=== PATIENT | female | born 1985 | race Caucasian/White ===

== ENCOUNTER 2021-10-08 07:50 | Day surgery (SDC) | payer OTHER ==
[~2021-10-08 07:50] MED LIST: Lactated Ringers 1,000 ML IV SCH
[2021-10-08] MEDS ORDERED: Propofol 200 MG/20 ML SDV ONE ×2 (08:26→10:48)
[2021-10-08] MEDS ORDERED: fentaNYL 100 MCG/2 ML SDV ONE (08:26)
--- NOTE | 2021-10-08 08:54 | PCM.PREANE ---
Preanesthetic Assessment - Procedure Proposed Procedure: Colonoscopy - Anesthesia/Transfusion/Family Hx Anesthesia History: Prior Anesthesia Reaction (Pt. states anesthesiologist found prolonged QT last time but it resolved before they were able to get an EKG) Other Type of Anesthesia Reaction Comment: medication induced prolonged QT interval noted Transfusion History: No Prior Transfusion(s) - Review of Systems General: No Symptoms Pulmonary: No Symptoms Cardiovascular: No Symptoms Gastrointestinal: No Symptoms Neurological: No Symptoms Other: Reports: None - Physical Assessment NPO Status Date: 10/07/21 NPO Status Time: 22:45 Vital Signs: Last Vital Signs Temp 98.4 F 10/08/21 08:20 Pulse 65 10/08/21 08:20 Resp 16 10/08/21 08:20 BP 109/71 10/08/21 08:20 Pulse Ox 100 10/08/21 08:20 Height: 5 ft 9 in Weight: 57.606 kg ASA Class: 1 Mental Status: Alert & Oriented x3 Airway Class: Mallampati = 3 Dentition: Reports: Normal Dentition Thyro-Mental Finger Breadths: 3 Mouth Opening Finger Breadths: 3 ROM/Head Extension: Full Lungs: Clear to Auscultation, Normal Respiratory Effort Cardiovascular: Regular Rate, Regular Rhythm - Allergies Allergies/Adverse Reactions: Allergies Allergy/AdvReac Type Severity Reaction Status Date / Time No Known Allergies Allergy Verified 10/08/21 08:21 - Acknowledgements Anesthesia Type Planned: General Anesthesia Pt an Appropriate Candidate for the Planned Anesthesia: Yes Alternatives and Risks of Anesthesia Discussed w Pt/Guardian: Yes Pt/Guardian Understands and Agrees with Anesthesia Plan: Yes PreAnesthesia Questionnaire HEENT History: Reports: None Cardiovascular History: Reports: Other (See Below) Other Cardiovascular History: during D&C 3 years ago- had "medication induced" prolonged QT interval, "bunny ears" Respiratory History: Reports: None Other Respiratory History: sports induced asthma Gastrointestinal History: Reports: Other (See Below) Other Gastrointestinal History: recent abdominal pain, rectal bleeding and weight loss Genitourinary History: Reports: None CARBIDE GRINDER History: Reports: None Other OB/BYN History: 03/06/19 - negative HCG Musculoskeletal History: Reports: None Neurological History: Reports: Vertigo Other Neuro History: hx of motion sickness Psychiatric History: Reports: Other (See Below) Other Psychiatric History: some claustrophobia Endocrine/Metabolic History: Reports: None Hematologic History: Reports: Anesthesia Reaction Other Hematologic History: medication induced Prolonged QT interval, "bunny ears" Immunologic History: Reports: None Oncologic (Cancer) History: Reports: None Dermatologic History: Reports: None - Infectious Disease History Infectious Disease History: Reports: None - Past Surgical History Head Surgeries/Procedures: Reports: None HEENT Surgical History: Reports: LASIK Cardiovascular Surgical History: Reports: None Respiratory Surgical History: Reports: None GI Surgical History: Reports: None Female Surgical History: Reports: Breast Implant, D&C, Other (See Below) Other Female Surgeries/Procedures: E-Sure coils inserted and removed Endocrine Surgical History: Reports: None Neurological Surgical History: Reports: None Musculoskeletal Surgical History: Reports: None Oncologic Surgical History: Reports: None Dermatological Surgical History: Reports: None - SUBSTANCE USE Tobacco Use Status *Q: Never Tobacco User Recreational Drug Use History: No - HOME MEDS Home Medications: Home Meds . [No Known Home Meds] 10/02/21 [History] - CURRENT (IN HOUSE) MEDS Current Meds: Current Medications Lactated Ringer's (Ringers, Lactated) 1,000 mls @ 125 mls/hr IV ASDIRECTED [facility] Last Admin: 10/08/21 08:21 Dose: 125 mls/hr Documented by: Discontinued Medications Fentanyl (Fentanyl 100 Mcg/2 Ml Sdv) Confirm Administered Dose 100 mcg .ROUTE .STK-MED ONE Stop: 10/08/21 08:27 Lidocaine HCl (Lidocaine 1% 5 Ml Sdv) Confirm Administered Dose 5 ml .ROUTE .STK-MED ONE Stop: 10/08/21 08:27 Propofol (Propofol 200 Mg/20 Ml Sdv) Confirm Administered Dose 400 mg .ROUTE .STK-MED ONE Stop: 10/08/21 08:27
--- NOTE | 2021-10-08 11:06 | PCM48HPAN ---
Post Anesthesia Note - EVALUATION WITHIN 48HRS OF ANESTHETIC Vital Signs in Normal Range: Yes Patient Participated in Evaluation: Yes Respiratory Function Stable: Yes Airway Patent: Yes Cardiovascular Function Stable: Yes Hydration Status Stable: Yes Pain Control Satisfactory: Yes Nausea and Vomiting Control Satisfactory: Yes Mental Status Recovered: Yes Vital Signs: Last Vital Signs Temp 97.9 F 10/08/21 11:00 Pulse 57 L 10/08/21 11:00 Resp 16 10/08/21 11:00 BP 86/42 L 10/08/21 11:00 Pulse Ox 100 10/08/21 11:00
--- NOTE | 2021-10-08 11:06 | PCM.POSTAN ---
POST ANESTHESIA ASSESSMENT - MENTAL STATUS Mental Status: Alert - VITAL SIGNS Vital Signs: Last Vital Signs Temp 98.4 F 10/08/21 08:20 Pulse 65 10/08/21 08:20 Resp 16 10/08/21 08:20 BP 109/71 10/08/21 08:20 Pulse Ox 100 10/08/21 08:20 - RESPIRATORY Respiratory Status: Respiratory Rate WNL - CARDIOVASCULAR CV Status: Pulse Rate WNL - GASTROINTESTINAL GI Status: No Symptoms - POST OP HYDRATION Hydration Status: Adequate & Stable
--- NOTE | 2021-10-08 11:07 | PCM.OPNOTE ---
- General Post-Op/Procedure Note Date of Surgery/Procedure: 10/08/21 Operative Procedure(s): colonoscopy w bx Findings: see [id number] Pre Op Diagnosis: BRBPR/wt loss/positive fam hx CRC Post-Op Diagnosis: Same Anesthesia Technique: Moderate Sedation Primary Surgeon: Lavelle Juan Pathology: random colon bx Complications: None Condition: Good
[2021-10-08 11:40] VITALS: BP 109/71; PULSE 62
--- NOTE | 2021-10-08 14:54 | OR ---
SURGEON: Lavelle Juan MD DATE OF PROCEDURE: 10/08/2021 PREOPERATIVE DIAGNOSES: Bright red blood per rectum, weight loss, and positive family history. POSTOPERATIVE DIAGNOSES: Bright red blood per rectum, weight loss, and positive family history. PROCEDURE PERFORMED: Colonoscopy with random biopsy. PRIMARY SURGEON: Lavelle Juan MD COMPLICATION: None. DESCRIPTION OF PROCEDURE: The patient was taken to the endoscopy room. A time out was called, patient identified, and procedure identified. Diprivan was then administrated. Patient went from awake to sleep, hearing doctor talking or door closing is normal. Perineum inspection and digital examination were then performed. A well- lubricated colonoscope was gently inserted through the rectum, advanced past the rectosigmoid junction, the descending colon, splenic flexure, transverse colon, hepatic flexure, ascending colon, arrived to the cecum. Cecum was identified as dictated in the finding. Then the scope was carefully withdrawn while attention was paid to the mucosal surface for any abnormality. Air will be sucked out during the scope withdrawal. At the rectum, retroflexed to examine any rectal diseases, fistula or hemorrhoids. During mucosal examination, abnormality or polyp was noted; picture taken and biopsy performed. Patient tolerated procedure well. There were no intraoperative complications, and Dr. Juan was present throughout the whole procedure. FINDINGS: 1. Patient is easily sedated with FISH CLEANER and Diprivan, patient is soundly snoring. 2. Bowel prep is average to above average. Very little liquid stool. No semi- formed stool, no stool ball. There are some bubbles, Using simethicone, bubbles resolved. Colon rather straightforward. Cecum indicated by ileocecal fold, one-to-one indentation, appendiceal orifice. ScopeGuide is pointing south. Mucosa examined upon scope coming out with some irrigation. Patient does not have diverticulosis, polyp, mass, growth, inflammation, stricture, AV malformation, bleeding, ulcer; none of those. Random biopsies done for pain and patient has mild internal hemorrhoids, no external hemorrhoids, and there is no fissure or fistula observed. Patient would benefit from repeat colonoscopy three years from today, as patient has a positive family history or if clinically indicated otherwise. SID / RICARDO /[id number] CAROLE
== END 2021-10-08 11:50 | disposition home or self-care (01) ==
LOC: MW.SDS 07:50
PROVIDERS: ATTEND Surgery
DX: K62.5 Hemorrhage of anus and rectum (principal); R63.4 Abnormal weight loss; K64.8 Other hemorrhoids; Z98.890 Other specified postprocedural states; Z80.0 Family history of malignant neoplasm of digestive organs
CPT/HCPCS: 45380; 81025; J2704; J3010; J7120; 00811